=== PATIENT | female | born 1950 | race Hispanic/Latino ===

== ENCOUNTER 2018-04-25 14:48 | Emergency (ER) | payer OTHER ==
[2018-04-25] MEDS ORDERED: ACETAMINOPHEN EXTRA STRENGTH 500 MG TABLET ONE (15:29)
== END 2018-04-25 15:52 | disposition home or self-care (01) ==
LOC: EDH 14:48
DX: S70.02XA Contusion of left hip, initial encounter (principal); S90.32XA Contusion of left foot, initial encounter; W01.190A Fall on same level from slipping, tripping and stumbling with subsequent striking against furniture, initial encounter; Y93.01 Activity, walking, marching and hiking; Y92.89 Other specified places as the place of occurrence of the external cause; Y99.8 Other external cause status; I10 Essential (primary) hypertension; E11.9 Type 2 diabetes mellitus without complications; E07.9 Disorder of thyroid, unspecified
CPT/HCPCS: 73521

== ENCOUNTER → 2023-01-30 | Outpatient (CLI) | payer OTHER | END | disposition home or self-care (01) | LOC: SHCH 11:31 | PROVIDERS: ATTEND Internal Medicine Cardiovascular Disease | DX: I65.23 Occlusion and stenosis of bilateral carotid arteries (principal) | CPT/HCPCS: 93880 ==

== ENCOUNTER → 2023-07-23 | Outpatient (CLI) | payer OTHER | END | disposition home or self-care (01) | LOC: SHCH 07:47 | PROVIDERS: ATTEND Internal Medicine Cardiovascular Disease | DX: I65.23 Occlusion and stenosis of bilateral carotid arteries (principal) | CPT/HCPCS: 93880 ==

== ENCOUNTER 2024-02-18 23:44 | Emergency (ER) | payer OTHER ==
[~2024-02-18] VITALS: Ht 157.5 cm; Wt 55.3 kg
[2024-02-19] MEDS: acetaMINOPHEN 500 MG TABLET PO ONE (00:31)
--- NOTE | 2024-02-19 00:34 | NUR ---
PT MEDICATED ORDERED.
--- NOTE | 2024-02-19 00:58 | ERN ---
ED Note History of Present Illness Stated Complaint: C/O PAIN WITH REDNESS TO RT BIG TOE Chief Complaint: Toe Pain/Injury Time Seen by MD: 23:47 Time Seen by Midlevel: 23:47 Dictation: The Patient is a 73-year-old female with history of hypertension, diabetes, hyperlipidemia, hypothyroidism who presents to the emergency department with complaints of right toe onset this morning. Patient denies any trauma, denies any fevers. Allergies: Coded Allergies: No Known Allergies (Unverified Allergy, Unknown, 02/18/24) Past Medical History Past Medical History: Diabetes-Type II, High Cholesterol, Hypertension, Hypothyroid Surgical History: None RN Note Reviewed/Agreed w/PFSH: Yes Review of System Dictation Constitutional: Negative for fever,chills, and weight loss Eyes: Negative for injury, pain,redness, and discharge ENT: Negative for injury,pain or swelling Cardiovascular: Negative for chest pain, palpitations, and edema Respiratory: Negative for shortness of breath, cough, and wheezing, Abdomen/GI: Negative for abdominal pain, nausea, vomiting, diarrhea, and constipation Back: Negative for injury and pain : Negative for injury, bleeding and discharge MS/Extremity: Negative for injury and deformity positive for right toe pain Skin: Negative for rash, and discoloration Neuro: Negative for headache, weakness, numbness, tingling, and seizure Psych: Negative for suicide ideation, homicidal ideation, and hallucinations Initial Vital Sign VS Vital Signs Date Time Temp Pulse Resp B/P (MAP) Pulse Ox O2 Delivery O2 Flow Rate FiO2 02/18/24 23:47 97.9 80 20 149/53 99 Room Air Physical Exam Dictation General: awake, alert, NAD Head/Face: Normocephalic, atraumatic Eyes: PERRL, EOMI, vision at baseline ENT: oral cavity clear, TMs clear, no signs of infection Neck: Trachea midline, supple, no nuchal rigidity Cardiovascular: RRR, normal S1/S2, No MRGs, no JVD Respiratory: CTAB, no respiratory distress, No rales or wheezes Abdomen: Soft, non-tender, non-distended, normal bowel sounds, no guarding or rebound. Skin: Warm, dry, normal turgor, no rash MS/Extremity: Pulses equal, no cyanosis, neurovascular intact, FROM, right great toe with erythema, no open wounds, cap refill less than 2 seconds, full ROM, CMS intact Neuro: COAx4, GCS 15, strength 5/5, CN 2-12 intact, normal cerebellar exam, normal gait, Psych: Normal behavior, mood, and affect normal Results (Laboratory/Radiology) Labs Reviewed?: Yes ED Course ED Course Orders Procedure Category Date Status Time Toe(S) 2+Vws Rt RAD 02/19/24 Taken 00:01 Acetaminophen 500mg PHA 02/19/24 Complete Tab (Tylenol 500mg T 00:30 Current Medications Medications (Trade) Dose Ordered Sig/Kylah Route PRN Reason Start Time Stop Time Status Last Admin Dose Admin Acetaminophen (TYLenol 500MG TAB) 1,000 mg ONCE ONCE PO 02/19/24 00:30 02/19/24 00:31 DC 02/19/24 00:31 Vital Signs Date Time Temp Pulse Resp B/P (MAP) Pulse Ox O2 Delivery O2 Flow Rate FiO2 02/18/24 23:47 97.9 80 20 149/53 99 Room Air Medical Decision Making MDM MDM: The Patient is a 73-year-old female with history of hypertension, diabetes, hyperlipidemia, hypothyroidism who presents to the emergency department with complaints of right toe onset this morning. Patient denies any trauma, denies any fevers. xray showed no obvious fractures or dislocation. patient will be discharge to follow up with pcp. Differential diagnosis: Cellulitis, orbital fracture, toe contusion, Need for hospitalization: Patient does not meet criteria for hospitalization. There are no social concerns with this patient. DX & DISP Disposition: Discharge Departure Impression: Primary Impression: Pain of right great toe Additional Impression: Toe contusion Condition: Stable Referrals: POONAM DINH M.D. (PCP) Time of Disposition: 01:20 ATTESTATION BY PHYSICIAN I PERFORMED THE SUBSTANTIVE PORTION OF THE VISIT. I HAVE REVIEWED AND PERSONALLY MADE AND APPROVED THE MANAGEMENT PLAN THAT IS DOCUMENTED IN THE NOTE BY MYSELF FOR THE A PP. I ACKNOWLEDGED FOR RESPONSIBILITY FOR THE PATIENT'S MANAGEMENT PLAN. I have examined patient, & reviewed all documents, & agreed W/ the Diagnosis, and Plan LESLIE REYNOLDS Feb 19, 2024 00:58 JB BECKWITH MD Feb 19, 2024 01:15
[2024-02-19 01:28] VITALS: BP 136/62; PULSE 78; RESP 16; TEMP 97.9; O2SAT 98
--- NOTE | 2024-02-19 10:09 | HMCIMG ---
RIGHT GREAT TOE RADIOGRAPHS - 2-3 VIEWS INDICATION: Pain COMPARISON: None FINDINGS: AP, lateral, and oblique views. No acute fracture or subluxation identified. No significant degenerative joint disease detected. No radiopaque foreign body noted. IMPRESSION: No evidence for fracture or subluxation.
== END 2024-02-19 01:30 | disposition home or self-care (01) ==
LOC: EDH 23:44
DX: S90.111A Contusion of right great toe without damage to nail, initial encounter (principal); M79.674 Pain in right toe(s); E03.9 Hypothyroidism, unspecified; E11.9 Type 2 diabetes mellitus without complications; E78.00 Pure hypercholesterolemia, unspecified; I10 Essential (primary) hypertension; X58.XXXA Exposure to other specified factors, initial encounter; Y93.89 Activity, other specified; Y92.89 Other specified places as the place of occurrence of the external cause; Y99.8 Other external cause status
CPT/HCPCS: 73660; 99283

== ENCOUNTER → 2024-05-13 | Outpatient (CLI) | payer OTHER ==
--- NOTE | 2024-05-19 10:34 | HMCSR ---
APPROVED REPORT Laterality: Bilateral Indications R09.89, Doppler Spectral Velocity Analysis PSV / EDVPSV / EDV ECA (R) 61 / cm/sECA (L) 49 / cm/s dICA (R) 110 / 43 cm/sdICA (L) 120 / 52 cm/s Reynaldo (R) 86 / 26 cm/smICA (L) 118 / 44 cm/s pICA (R) 51 / 16 cm/spICA (L) 61 / 19 cm/s dCCA (R) 56 / 18 cm/sdCCA (L) 90 / 26 cm/s mCCA (R) 64 / 19 cm/smCCA (L) 65 / 18 cm/s pCCA (R) 66 / 15 cm/spCCA (L) 68 / 15 cm/s Vert (R) 58 / cm/sVert (L) 47 / cm/s Subl. (R) 121 / cm/sSubl. (L) 127 / cm/s ICA/CCA 1.67ICA/CCA 1.33 Technologist Impression Minimal intimal thickening seen in the carotid system. JUWAN and LICA are patent. Bilateral vertebral arteries appear antegrade. Conclusion Minimal intimal thickening seen in the carotid system. JUWAN and LICA are patent. Bilateral vertebral arteries appear antegrade. Conclusion Minimal intimal thickening seen in the carotid system. JUWAN and LICA are patent. Bilateral vertebral arteries appear antegrade.
== END | disposition home or self-care (01) ==
LOC: SHCH 09:34
PROVIDERS: ATTEND Internal Medicine Cardiovascular Disease
DX: R09.89 Other specified symptoms and signs involving the circulatory and respiratory systems (principal)
CPT/HCPCS: 93880